=== PATIENT | male | born 1950 | race Caucasian/White ===

== ENCOUNTER → 2016-07-17 | Outpatient (CLI) | payer MEDICARE ==
--- NOTE | 2016-07-17 15:31 | KCIC ---
EXAM: Chest, 2 views. HISTORY: Bronchitis. COMPARISON: None. FINDINGS: Frontal and lateral views of the chest are obtained. There are small bilateral pleural effusions. There are coarse likely chronic interstitial markings. There is no consolidation. There is no pneumothorax. The heart is normal in size. IMPRESSION: 1. Small bilateral pleural effusions. 2. Coarse likely chronic interstitial markings. There is no consolidated pneumonia. Electronically signed by: Felicity Tyler MD (07/17/2016 3:28 PM)
== END | disposition home or self-care (01) ==
LOC: KCIC 15:05
PROVIDERS: ATTEND Physician Assistant Medical
DX: J90 Pleural effusion, not elsewhere classified (principal); J40 Bronchitis, not specified as acute or chronic
CPT/HCPCS: 71020